=== PATIENT | male | born 1995 | race Caucasian/White ===

== ENCOUNTER → 2019-11-24 | Outpatient (CLI) | payer OTHER ==
[~2019-11-24] MED LIST: FLON1SPR NARES; ZYRTTAB8 PO
== END ==
LOC: M LABSMTC 11:53
PROVIDERS: ATTEND Anesthesiology
DX: Z01.818 Encounter for other preprocedural examination (principal); Z11.59 Encounter for screening for other viral diseases
CPT/HCPCS: C9803; U0002

== ENCOUNTER 2019-11-26 12:22 | Day surgery (SDC) | payer OTHER ==
[~2019-11-26] VITALS: Ht 188 cm; Wt 76.7 kg
[~2019-11-26 12:22] MED LIST changes: -FLON1SPR NARES; +LIDOCAINE 2% 100MG/5ML SDV (FOR ANES.) As Ordered ONE; +NS 1,000 ML IV ONE; -ZYRTTAB8 PO; +fentaNYL 100 MCG/2 ML INJECTION (J3010) As Ordered ONE; +propofoL 200 MG/20 ML VIAL As Ordered ONE
[2019-11-26] MEDS ORDERED: ZYRTTAB8 PO (13:05)
[2019-11-26] MEDS ORDERED: FLON1SPR NARES (13:05)
[2019-11-26] MEDS ORDERED: propofoL 200 MG/20 ML VIAL As Ordered ONE (13:43)
--- NOTE | 2019-11-26 13:57 | ROOR ---
Patient Name: Selvin Brown Procedure Date: 11/26/2019 1:17 PM Date of : 1995 Age: 24 Room: [facility] Gender: Male Note Status: Finalized Procedure: Upper GI endoscopy Indications: Epigastric abdominal pain Providers: Tad Li MD Referring MD: TOMÁS MCKEON MD Requesting Provider: Medicines: Monitored Anesthesia Care Complications: No immediate complications. Procedure: Pre-Anesthesia Assessment: - Prior to the procedure, a History and Physical was performed, and patient medications and allergies were reviewed. The patient is competent. The risks and benefits of the procedure and the sedation options and risks were discussed with the patient. All questions were answered and informed consent was obtained. Patient identification and proposed procedure were verified by the physician, the nurse and the anesthesiologist in the procedure room. Mental Status Examination: alert and oriented. Airway Examination: normal oropharyngeal airway and neck mobility. Respiratory Examination: clear to auscultation. CV Examination: normal. Prophylactic Antibiotics: The patient does not require prophylactic antibiotics. Prior Anticoagulants: The patient has taken no previous anticoagulant or antiplatelet agents. ASA Grade Assessment: II - A patient with mild systemic disease. After reviewing the risks and benefits, the patient was deemed in satisfactory condition to undergo the procedure. The anesthesia plan was to use monitored anesthesia care (MAC). Immediately prior to administration of medications, the patient was re-assessed for adequacy to receive sedatives. The heart rate, respiratory rate, oxygen saturations, blood pressure, adequacy of pulmonary ventilation, and response to care were monitored throughout the procedure. The physical status of the patient was re-assessed after the procedure. The Endoscope was introduced through the mouth, and advanced to the second part of duodenum. The upper GI endoscopy was accomplished without difficulty. The patient tolerated the procedure well. Findings: The examined esophagus was normal. The Z-line was regular and was found 44 cm from the incisors. Scattered mild inflammation characterized by erythema and granularity was found in the gastric antrum. Biopsies were taken with a cold forceps for Helicobacter pylori testing. Verification of patient identification for the specimen was done by the physician and nurse using the patient's name, date and medical record number. Estimated blood loss was minimal. The duodenal bulb and second portion of the duodenum were normal. Biopsies for histology were taken with a cold forceps for evaluation of celiac disease. Impression: - Normal esophagus. - Z-line regular, 44 cm from the incisors. - Gastritis. Biopsied. - Normal duodenal bulb and second portion of the duodenum. Biopsied. Recommendation: - Patient has a contact number available for emergencies. The signs and symptoms of potential delayed complications were discussed with the patient. Return to normal activities tomorrow. Written discharge instructions were provided to the patient. - Resume previous diet. - Continue present medications. - Await pathology results. - Telephone GI clinic for pathology results 1 - 2 weeks. Please call GI clinic @ [phone] for apppointment date and time. - Return to primary care physician. Tad Li MD Tad Li MD 11/26/2019 1:57:15 PM Electronically signed by Tad Li MD Number of Addenda: 0 Note Initiated On: 11/26/2019 1:17 PM Estimated Blood Loss: Estimated blood loss was minimal.
--- NOTE | 2019-11-26 14:03 | ROOR ---
Patient Name: eSlvin Brown Procedure Date: 11/26/2019 1:17 PM Date of : 1995 Age: 24 Room: [facility] Gender: Male Note Status: Finalized Procedure: Colonoscopy Indications: Chronic diarrhea Providers: Tad Li MD Referring MD: TOMÁS MCKEON MD Requesting Provider: Medicines: Monitored Anesthesia Care Complications: No immediate complications. Procedure: Pre-Anesthesia Assessment: - Prior to the procedure, a History and Physical was performed, and patient medications and allergies were reviewed. The patient is competent. The risks and benefits of the procedure and the sedation options and risks were discussed with the patient. All questions were answered and informed consent was obtained. Patient identification and proposed procedure were verified by the physician, the nurse and the anesthesiologist in the procedure room. Mental Status Examination: alert and oriented. Airway Examination: normal oropharyngeal airway and neck mobility. Respiratory Examination: clear to auscultation. CV Examination: normal. Prophylactic Antibiotics: The patient does not require prophylactic antibiotics. Prior Anticoagulants: The patient has taken no previous anticoagulant or antiplatelet agents. ASA Grade Assessment: II - A patient with mild systemic disease. After reviewing the risks and benefits, the patient was deemed in satisfactory condition to undergo the procedure. The anesthesia plan was to use monitored anesthesia care (MAC). Immediately prior to administration of medications, the patient was re-assessed for adequacy to receive sedatives. The heart rate, respiratory rate, oxygen saturations, blood pressure, adequacy of pulmonary ventilation, and response to care were monitored throughout the procedure. The physical status of the patient was re-assessed after the procedure. The Colonoscope was introduced through the anus and advanced to the terminal ileum, with identification of the appendiceal orifice and IC valve. The colonoscopy was performed without difficulty. The patient tolerated the procedure well. The quality of the bowel preparation was good. The terminal ileum, ileocecal valve, appendiceal orifice, and rectum were photographed. Scope insertion time was 2 minutes. Scope withdrawal time was 9 minutes. The total duration of the procedure was 12 minutes. Findings: The perianal and digital rectal examinations were normal. The terminal ileum appeared normal. The colon (entire examined portion) was moderately tortuous. Normal mucosa was found in the entire colon. Biopsies for histology were taken with a cold forceps from the right colon, left colon and rectosigmoid colon for evaluation of microscopic colitis. Verification of patient identification for the specimen was done by the physician and nurse using the patient's name, date and medical record number. Estimated blood loss was minimal. Non-bleeding external and internal hemorrhoids were found during retroflexion. The hemorrhoids were small. Impression: - The examined portion of the ileum was normal. - Tortuous colon. - Normal mucosa in the entire examined colon. Biopsied. - Non-bleeding external and internal hemorrhoids. Recommendation: - Patient has a contact number available for emergencies. The signs and symptoms of potential delayed complications were discussed with the patient. Return to normal activities tomorrow. Written discharge instructions were provided to the patient. - High fiber diet. - Continue present medications. - Await pathology results. - Repeat colonoscopy at age 48 for screening purposes. - Telephone GI clinic for pathology results in 2 weeks. - Return to primary care physician. Tad Li MD Tad Li MD 11/26/2019 2:03:38 PM Electronically signed by Tad Li MD Number of Addenda: 0 Note Initiated On: 11/26/2019 1:17 PM Estimated Blood Loss: Estimated blood loss was minimal.
[2019-11-26 14:25] VITALS: BP 101/59
== END 2019-11-26 14:55 | disposition home or self-care (01) ==
LOC: M OPP 12:22
PROVIDERS: ATTEND Internal Medicine Gastroenterology
DX: K64.8 Other hemorrhoids (principal); K63.5 Polyp of colon; Q43.8 Other specified congenital malformations of intestine; K52.9 Noninfective gastroenteritis and colitis, unspecified; K29.70 Gastritis, unspecified, without bleeding; R10.13 Epigastric pain; J44.9 Chronic obstructive pulmonary disease, unspecified
CPT/HCPCS: 43239; 45380; 88305; J3010

== ENCOUNTER → 2019-12-08 | Outpatient (CLI) | payer OTHER ==
[~2019-12-08] MED LIST changes: +FLON1SPR NARES; -LIDOCAINE 2% 100MG/5ML SDV (FOR ANES.) As Ordered ONE; -NS 1,000 ML IV ONE; +ZYRTTAB8 PO; -fentaNYL 100 MCG/2 ML INJECTION (J3010) As Ordered ONE; -propofoL 200 MG/20 ML VIAL As Ordered ONE
--- NOTE | 2019-12-08 16:40 | PFTRPT ---
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 Pt was given four puffs of albuterol for post bronchodilator. Review Status: Not Reviewed Pre-Bronch Post-Bronch Pred Actual %Pred Actual %Chng SPIROMETRY FVC (L) 6.22 5.86 94 5.99 2 FEV1 (L) 5.06 4.86 95 5.18 6 FEV1/FVC (%) 83 83 99 87 4 FEF 25% (L/sec) 8.40 9.08 108 9.48 4 FEF 50% (L/sec) 5.29 5.39 101 7.54 39 FEF 75% (L/sec) 2.21 2.60 117 3.14 20 FEF 25-75% (L/sec) 5.02 4.93 98 6.01 22 FEF Max (L/sec) 11.15 9.30 83 10.27 10 FIVC (L) 4.03 4.92 22 FIF 50% (L/sec) 5.59 2.40 42 4.36 81 FIF Max (L/sec) 3.07 4.51 46 MVV (L/min) 196 150 76 Expiratory Time (sec) 7.23 6.89 -4 Back Extrap Vol (L) 0.20 0.15 -22 Time To FEFmax (sec) 0.126 0.091 -27 LUNG VOLUMES SVC (L) 5.93 6.07 102 IC (L) 3.88 4.57 117 ERV (L) 2.05 1.50 73 TGV (L) 3.82 4.13 108 RV (Pleth) (L) 1.77 2.63 148 TLC (Pleth) (L) 7.70 8.70 113 RV/TLC (Pleth) (%) 22 30 137 DIFFUSION DLCOunc (ml/min/mmHg) 37.74 33.05 87 DLCOcor (ml/min/mmHg) 37.74 32.96 87 DL/VA (ml/min/mmHg/L) 4.90 4.22 86 VA (L) 7.70 7.80 101 BHT (sec) 10.73 IVC (L) 6.04 TLC (SB) (L) 7.95 AIRWAYS RESISTANCE Raw (cmH2O/L/s) 1.45 0.79 54 Gaw (L/s/cmH2O) 1.03 1.29 125 sRaw (cmH2O*s) 4.76 3.15 66 sGaw (1/cmH2O*s) 0.20 0.32 161 BLOOD GASES Hgb (gm/dL) 14.7
== END ==
LOC: M CARPUL 15:50
PROVIDERS: ATTEND Family Medicine
DX: R05 Cough (principal)

== ENCOUNTER → 2019-12-20 | Outpatient (CLI) | payer OTHER ==
[~2019-12-20] MED LIST changes: +METHACHOLINE KIT (J7674) INH ONE
--- NOTE | 2019-12-20 15:54 | PFTRPT ---
Visit Date: 12/20/2019 Referring Doctor: David Mercer MD Height: 74.00 Inches Weight: 175.00 Lbs BSA: 2.05 Diagnosis: COUGH Study of excellent technical quality. Under protocol, methacholine was administered. At a dose of 2.5 mg (13.875 CDUs), a 29% decline in the FEV1 was noted. PC of 0.78 is significant. Flow rates did return to baseline postbronchodilator administration. IMPRESSION: Positive methacholine challenge study. MTDD
--- NOTE | 2019-12-24 14:54 | PFTRPT ---
DATE OF STUDY: 12/20/2019 ORDERED BY: Dr. David Mercer Pre and postbronchodilator study of excellent technical quality. Forced vital capacity normal. FEV1 in proportion. Obstructive index is therefore normal. Expiratory limb of the flow volume loop is normal. No significant bronchodilator response is identified. Total lung capacity generally normal. Residual volume is in proportion. Diffusing capacity is normal. Hemoglobin acceptable at 14.7. Airways resistance and conductance are normal. IMPRESSION: Normal study. MTDD
== END ==
LOC: M CARPUL 14:57
PROVIDERS: ATTEND Family Medicine
DX: R05 Cough (principal)
CPT/HCPCS: 94070; J7674

== ENCOUNTER → 2020-01-04 | Outpatient (CLI) | payer OTHER ==
[~2020-01-04] MED LIST changes: -METHACHOLINE KIT (J7674) INH ONE
--- NOTE | 2020-01-04 13:25 | REP ---
REASON FOR EXAM: Unexplained dyspnea. COMPARISON: No priors for comparison. There is no mediastinal or hilar adenopathy. There are no pleural or pericardial effusions. The imaged upper abdomen and imaged osseous structures are within normal limits. Evaluation of the lung tolentino show no abnormal nodules, masses, or opacities. IMPRESSION: CT findings are within normal limits. Electronically Signed by Silvestre Carver DO 01/04/2020 05:17 P
== END ==
LOC: M RAD 09:56
PROVIDERS: ATTEND Internal Medicine Pulmonary Disease
DX: R06.09 Other forms of dyspnea (principal)